=== PATIENT | female | born 1990 ===

== ENCOUNTER 2019-04-04 06:15 | Day surgery (SDC) | payer OTHER ==
[2019-04-04] MEDS ORDERED: COLACE100 MG PO (10:16)
[2019-04-04] MEDS ORDERED: PERCOCET 5-3251 EACH PO (10:16)
== END 2019-04-04 16:10 | disposition home or self-care (01) ==
LOC: CIR.AMB 06:15
DX: K64.4 Residual hemorrhoidal skin tags (principal); K64.8 Other hemorrhoids

== ENCOUNTER → 2022-01-03 | Outpatient (CLI) | payer OTHER ==
[~2022-01-03] MED LIST: COLACE100 MG PO; PERCOCET 5-3251 EACH PO
== END | disposition home or self-care (01) ==
LOC: NST 13:39
PROVIDERS: ATTEND Obstetrics & Gynecology Maternal & Fetal Medicine
DX: Z34.83 Encounter for supervision of other normal pregnancy, third trimester (principal)

== ENCOUNTER 2022-01-06 09:32 | Inpatient (IN) | payer OTHER ==
[~2022-01-06] VITALS: Ht 157.5 cm; Wt 2.7 kg
[2022-01-18] MEDS ORDERED: COMPLETE NATAL1 EACH PO (11:30)
== END 2022-01-21 12:43 | disposition home or self-care (01) | DRG 788 ==
LOC: O/R 01-18 11:54 → OB/GYN 01-18 12:28
PROVIDERS: ADMIT Obstetrics & Gynecology Maternal & Fetal Medicine; ATTEND Obstetrics & Gynecology Maternal & Fetal Medicine
PROC: 4A1HXCZ Monitoring of Products of Conception, Cardiac Rate, External Approach (ICD-10-PCS; 2022-01-18)
PROC: 10D00Z1 Extraction of Products of Conception, Low, Open Approach (ICD-10-PCS; principal; 2022-01-18 12:30)
DX: O82 Encounter for cesarean delivery without indication (principal); Z3A.39 39 weeks gestation of pregnancy; Z37.0 Single live birth; Z20.822 Contact with and (suspected) exposure to COVID-19

== ENCOUNTER 2022-01-09 12:33 | Outpatient (CLI) | payer OTHER | END 2022-01-09 13:17 | disposition home or self-care (01) | LOC: NST 12:33 | PROVIDERS: ATTEND Obstetrics & Gynecology Gynecology | DX: Z34.83 Encounter for supervision of other normal pregnancy, third trimester (principal) ==

== ENCOUNTER 2022-01-16 14:49 | Outpatient (CLI) | payer OTHER | END 2022-01-16 16:39 | disposition home or self-care (01) | LOC: NST 14:49 | PROVIDERS: ATTEND Obstetrics & Gynecology | DX: Z34.83 Encounter for supervision of other normal pregnancy, third trimester (principal) ==

== ENCOUNTER 2025-04-24 09:04 | Outpatient (CLI) | payer OTHER ==
[~2025-04-24 09:04] MED LIST changes: +COMPLETE NATAL1 EACH PO
== END 2025-04-24 09:35 | disposition home or self-care (01) ==
LOC: NST 09:04
PROVIDERS: ATTEND Obstetrics & Gynecology Gynecology
DX: Z34.83 Encounter for supervision of other normal pregnancy, third trimester (principal)